=== PATIENT | female | born 1990 | race Caucasian/White ===

== ENCOUNTER 2023-05-04 18:49 | Inpatient (IN) ==
[2023-05-04 20:14] LABS: ABS Basophils 0.1 10^3/uL (0.0-0.1); ABS Eosinophils 0.1 10^3/uL (0.0-0.5); ABS Lymphocytes 1.4 10^3/uL (1.0-4.8); ABS Monocytes 0.4 10^3/uL (0.0-0.9); ABS Neutrophils 4.8 10^3/uL (1.5-7.6); Eosinophil % 1.2 %; Hematocrit 38.2 % (35-45); Hemoglobin 12.9 g/dL (11.5-14.3); Lymphocyte % 20.6 %; Mean Corpuscular Hemoglobin 29.4 pg (27-33); Mean Corpuscular Hgb Conc 33.9 g/dL (31-36); Mean Corpuscular Volume 86.7 fL (80-97); Mean Platelet Volume 7.9 fL (7.5-11.2); Platelet Count 229 10^3/uL (150-450); Red Blood Count 4.41 10^6/uL (3.63-4.92); Red Cell Distribution Width 13.9 % (12-17); White Blood Count 6.7 10^3/uL (3.8-11.8)
[2023-05-04 20:30] LABS: Urine Appearance Clear; Urine Bilirubin Negative (Negative); Urine Blood Negative (Negative); Urine Color Yellow; Urine Glucose Negative (Negative); Urine Ketones Negative (Negative); Urine Nitrite Negative (Negative); Urine Protein Negative (Negative); Urine Specific Gravity 1.004 (1.002-1.030); Urine Urobilinogen Negative (Negative)
[2023-05-04 20:37] LABS: ALT 15 U/L (7-52); AST 20 U/L (13-39); Albumin 4.5 g/dL (3.2-5.2); Albumin/Globulin Ratio 1.9 (1-3); Alkaline Phosphatase 39 U/L (35-149); Anion Gap 7 mmol/L (2-16); Blood Urea Nitrogen 8 mg/dL (6-24); CO2 Carbon Dioxide 28 mmol/L (22-32); Calcium 9.4 mg/dL (8.6-10.3); Chloride 102 mmol/L (101-111); Creatinine, Serum 0.84 mg/dL (0.51-0.95); Globulin 2.4 g/dL (2-4); Glucose 94 mg/dL (70-100); Potassium 3.7 mmol/L (3.5-5.0); Sodium 137 mmol/L (135-145); Total Protein 6.9 g/dL (6.4-8.9); eGFR CKD-EPI 95.2 (>60)
[2023-05-04 20:43] LABS: HCG Pregnancy < 0.60 mIU/mL
[2023-05-04 20:57] LABS: Urine Benzodiazepine Screen None Detected (None Detect); Urine Cannabinoids Screen None Detected (None Detect); Urine Opiates Screen None Detected (None Detect)
[2023-05-04 20:59] LABS: Acetaminophen < 15 mcg/mL; Alcohol, S < 13 mg/dL (<13); Salicylate < 2.50 mg/dL (<30)
[2023-05-04] MEDS ORDERED: Al Hydrox/Mg Hydrox/Simet LIQ 30 ML UDC PO PRN (23:20)
[2023-05-05 07:55] LABS: HDL Cholesterol 73.3 mg/dL
[2023-05-05] MEDS: Vitamin THERAPEUTIC TAB PO SCH (08:03)
[2023-05-05] MEDS ORDERED: buPROPion SR 100 mg TAB.SR PO SCH ×4 (09:00→21:00)
[2023-05-05 13:15] LABS: Vitamin B12 515 pg/mL (180-914)
[2023-05-05 13:19] LABS: Vitamin D Total 25(OH) 43.1 ng/mL (20-50)
[2023-05-05] MEDS: Polyethylene Glycol 3350 17 GM PACKET PO SCH (20:41)
[2023-05-05] MEDS ORDERED: Calcium/Vitamin D TAB 250/125 TAB PO SCH (21:00)
[2023-05-06] MEDS: Vitamin THERAPEUTIC TAB PO SCH (08:48)
[2023-05-06] MEDS: DULoxetine DR 20 mg CAP PO SCH (08:49)
[2023-05-06] MEDS: Calcium/Vitamin D TAB 250/125 TAB PO SCH (09:26)
[2023-05-06] MEDS: Polyethylene Glycol 3350 17 GM PACKET PO SCH (20:19)
[2023-05-07] MEDS: DULoxetine DR 20 mg CAP PO SCH (08:05)
[2023-05-07] MEDS: Calcium/Vitamin D TAB 250/125 TAB PO SCH (08:05)
[2023-05-07] MEDS: Vitamin THERAPEUTIC TAB PO SCH (08:05)
[2023-05-07 09:30] VITALS: BP 108/76
== END 2023-05-07 11:05 | disposition home or self-care (01) | DRG 885 ==
LOC: ED 18:49 → EDHOLD 23:20 → BSU 05-05 02:04
PROVIDERS: ADMIT Psychiatry & Neurology Psychiatry; ATTEND Psychiatry & Neurology Psychiatry